=== PATIENT | female | born 1950 | race Caucasian/White ===

== ENCOUNTER → 2018-08-26 | Outpatient (CLI) | payer OTHER ==
[~2018-08-26] MED LIST: ALBU90OI INH; AMIT50 PO; FURO20 PO; HYDACE5 PO; INSLI75/25 SC; INSULIN; LOSARTAN POTAS100 MG PO; METCAR500 PO; METPHE10 PO; OXYC5 PO; RAMI2.5 PO; SERT100 PO
[2018-08-27 20:25] LABS: Adenovirus F 40/41 Not Detected (NOT DETECT); Campylobacter Sp Not Detected (NOT DETECT); Cryptosporidium Not Detected (NOT DETECT); Cyclospora Cayetanensis Not Detected (NOT DETECT); E. Coli O157 Not Detected (NOT DETECT); Entamoeba Histolytica Not Detected (NOT DETECT); Enteroaggregative E. coli-EAEC Not Detected (NOT DETECT); Enteropathogenic E. coli-EPEC Not Detected (NOT DETECT); Enterotoxigenic E. coli-ETEC Not Detected (NOT DETECT); Giardia Lamblia Not Detected (NOT DETECT); Plesiomonas Shigelloides Not Detected (NOT DETECT); Salmonella Sp Not Detected (NOT DETECT); Shiga Toxin-prod E. coli-STEC Not Detected (NOT DETECT); Shigella/Enteroin E. coli-EIEC Not Detected (NOT DETECT); Vibrio Cholerae Not Detected (NOT DETECT); Vibrio Sp Not Detected (NOT DETECT); Yersinia Enterocolitica Not Detected (NOT DETECT)
[2018-08-27 20:26] LABS: Astrovirus Not Detected (NOT DETECT); Norovirus GI/GII Not Detected (NOT DETECT); Rotavirus A Not Detected (NOT DETECT); Sapovirus Not Detected (NOT DETECT)
== END | disposition home or self-care (01) ==
LOC: LAB EV 20:00
PROVIDERS: Physician Assistant Medical
DX: R19.7 Diarrhea, unspecified (principal); R11.2 Nausea with vomiting, unspecified
CPT/HCPCS: 87507

== ENCOUNTER 2018-10-15 13:22 | Day surgery (SDC) | payer OTHER ==
[~2018-10-15] VITALS: Ht 162.6 cm; Wt 104.7 kg
[~2018-10-15 13:22] MED LIST changes: +AMLO5 PO; +FURO40 PO; +Humalog Mi100 UNIT/5 SC; +K-Dur20 MEQ PO; +OMEPRAZOLE MAGN20 MG PO; +TIZANIDINE HCL4 MG PO
[2018-10-15] MEDS ORDERED: INSULANPEN (14:35)
[2018-10-15] MEDS ORDERED: TRULICITY0.75 MG/0. SQ (14:35)
--- NOTE | 2018-10-15 15:06 | NUR ---
10/15/18 1506 Elham Varghese 1CC OF PF 1% LIDOCAINE INJ BY MB IN OPERATIVE EYE AT BEGINNING OF THE CASE
== END 2018-10-15 15:30 | disposition home or self-care (01) ==
LOC: ORSCSDS 13:22
PROVIDERS: Ophthalmology
PROC: 08RJ3JZ Replacement of Right Lens with Synthetic Substitute, Percutaneous Approach (ICD-10-PCS; principal; 2018-10-15 15:30)
DX: H25.11 Age-related nuclear cataract, right eye (principal); I10 Essential (primary) hypertension; E11.9 Type 2 diabetes mellitus without complications; E66.01 Morbid (severe) obesity due to excess calories; Z68.39 Body mass index [BMI] 39.0-39.9, adult; Z79.4 Long term (current) use of insulin; F17.210 Nicotine dependence, cigarettes, uncomplicated; Z79.899 Other long term (current) drug therapy
CPT/HCPCS: 82947; J2250; J3010; J7120; V2632

== ENCOUNTER 2018-12-03 10:24 | Day surgery (SDC) | payer OTHER, SELFPAY ==
[~2018-12-03] VITALS: Ht 162.6 cm; Wt 103.2 kg
[~2018-12-03 10:24] MED LIST changes: +Humalog Mi100 UNIT/5; +INSULANPEN; +Prilosec Otc20 MG PO; +TRULICITY0.75 MG/0. SQ; +[UNRECOGNIZED DRUG - CODE]
== END 2018-12-03 14:33 | disposition home or self-care (01) ==
LOC: ORSCSDS 10:24
PROVIDERS: Ophthalmology
PROC: 08RK3JZ Replacement of Left Lens with Synthetic Substitute, Percutaneous Approach (ICD-10-PCS; principal; 2018-12-03 13:30)
DX: H25.12 Age-related nuclear cataract, left eye (principal); H21.81 Floppy iris syndrome; I10 Essential (primary) hypertension; E11.9 Type 2 diabetes mellitus without complications; F17.210 Nicotine dependence, cigarettes, uncomplicated; E66.01 Morbid (severe) obesity due to excess calories; Z68.42 Body mass index [BMI] 45.0-49.9, adult; Z79.4 Long term (current) use of insulin; Z79.899 Other long term (current) drug therapy
CPT/HCPCS: 82947; J2001; J2250; J3010; J7120; V2632

== ENCOUNTER → 2019-07-06 | Outpatient (CLI) | payer OTHER ==
[2019-07-07 06:21] LABS: Candida species (DNA Probe) Negative (NEGATIVE); G. vaginalis (DNA Probe) Negative (NEGATIVE); T. vaginalis (DNA Probe) Negative (NEGATIVE)
== END | disposition home or self-care (01) ==
LOC: LAB SHORT 08:40 → LAB EV 08:40
PROVIDERS: Physician Assistant Medical
DX: B37.3 Candidiasis of vulva and vagina (principal)
CPT/HCPCS: 87480; 87510; 87660

== ENCOUNTER → 2022-01-30 | Outpatient (CLI) | payer OTHER ==
[~2022-01-30] MED LIST changes: +ALBUTEROL1.25 MG/3 NEB; +ASPI81CH PO; +ATOR10 PO; +CELEBREX200 MG PO; +Chantix1 MG PO; +ESCI20 PO; +LANTUS SOL100 UNIT/1 SC; +NOVOLOG FL100 UNIT/2 SC; +SITA100T2 PO; +SYMBICORT 16010.2 GM INH; +TIZA4 PO; +TRULICITY4.5 MG/0.5 SC
== END | disposition home or self-care (01) ==
LOC: LAB SHORT 15:59 → LAB 15:59
DX: Z48.02 Encounter for removal of sutures (principal); L08.9 Local infection of the skin and subcutaneous tissue, unspecified
CPT/HCPCS: 87070; 87077; 87147; 87186; 87205

== ENCOUNTER 2024-02-18 15:56 | Emergency (ER) | payer OTHER ==
[~2024-02-18] VITALS: Ht 162.6 cm; Wt 113.4 kg
[~2024-02-18 15:56] MED LIST changes: +AMITRIPTYLINE100 M2 PO; +ATOR40TA PO; +BUPR150ER PO; +INSULIN LI100 UNIT/8 SC; +Isosorbide Mono30 MG PO; +JARDIANCE10 MG PO; +K-Dur10 MEQ PO; -LANTUS SOL100 UNIT/1 SC; +METO50ER PO; +NYSTATIN15 GM TOP; +OMEP20ER PO; -Prilosec Otc20 MG PO; +TOUJEO MAX300 UNIT/2 SC; +VITAMIN D32000 UNI1 PO
[2024-02-18 16:35] LABS: BASOPHILS ABSOLUTE AUTO 0.06 K/mm3 (0.00-0.23); BASOPHILS PERCENT AUTO 1 % (0-2); EOSINOPHILS ABSOLUTE AUTO 0.25 K/mm3 (0.00-0.68); EOSINOPHILS PERCENT AUTO 3 % (0-6); Hematocrit 36.7 % (33.0-51.0); IMMATURE GRAN ABSOLUTE AUTO 0.05 K/mm3 (0.00-0.10); IMMATURE GRAN PERCENT AUTO 1 % (0-1); LYMPHOCYTES ABSOLUTE AUTO 1.66 K/mm3 (0.84-5.20); LYMPHOCYTES PERCENT AUTO 18 % (21-46); MONOCYTES ABSOLUTE AUTO 0.61 K/mm3 (0.16-1.47); MONOCYTES PERCENT AUTO 7 % (4-13); Mean Corpuscular HGB 28.4 pg (26.0-34.0); Mean Corpuscular HGB Conc 32.7 g/dL (31.5-36.5); Mean Corpuscular Volume 87 fL (80-100); Mean Platelet Volume 9.7 fL (9.1-12.4); NEUTROPHILS ABSOLUTE AUTO 6.75 K/mm3 (1.96-9.15); NEUTROPHILS PERCENT AUTO 72 % (41-73); Platelet Count 276 K/mm3 (150-400); RDW Standard Deviation 44.1 fL (35.1-46.3); Red Blood Cell Count 4.23 M/mm3 (3.80-5.20); White Blood Cell Count 9.38 K/mm3 (4.00-11.30)
[2024-02-18 16:56] LABS: Albumin, Blood 3.2 g/dL (3.4-5.0); Albumin/Globulin Ratio 0.7 (0.8-1.8); Bilirubin, Total 0.4 mg/dL (0.1-1.0); Bun/Creatinine Ratio 19.8 (12.0-20.0); Calcium, Blood 9.1 mg/dL (8.5-10.1); Creatinine, Blood 0.81 mg/dL (0.40-1.00); Globulin, Blood 4.4 g/dL (2.2-4.0); Potassium, Blood 4.6 mmol/L (3.5-5.5); Total Protein, Blood 7.6 g/dL (6.4-8.2)
[2024-02-18 17:30] VITALS: BP 187/66
[2024-02-18] MEDS ORDERED: MethylPREDNISolone Sod Succ 125 MG Vial IV ONE (18:00)
[2024-02-18] MEDS ORDERED: Albuterol 2.5 MG/3 ML VIAL INH SCH (18:00)
[2024-02-18] MEDS ORDERED: Prednisone20 MG PO (19:59)
== END 2024-02-18 20:15 | disposition home or self-care (01) ==
LOC: ER 15:56
PROVIDERS: Physician Assistant
DX: J44.9 Chronic obstructive pulmonary disease, unspecified (principal); E11.9 Type 2 diabetes mellitus without complications; I11.0 Hypertensive heart disease with heart failure; I50.9 Heart failure, unspecified; F17.210 Nicotine dependence, cigarettes, uncomplicated; Z79.4 Long term (current) use of insulin; Z79.899 Other long term (current) drug therapy; Z79.51 Long term (current) use of inhaled steroids; Z79.82 Long term (current) use of aspirin; Z88.5 Allergy status to narcotic agent
CPT/HCPCS: 71046; 80053; 83880; 84484; 85025; 93005; 93010; 94644; 94664; 96374; 99285-25; J2919

== ENCOUNTER 2024-03-14 18:12 | Emergency (ER) | payer OTHER ==
[~2024-03-14] VITALS: Ht 162.6 cm; Wt 113.4 kg
[~2024-03-14 18:12] MED LIST changes: +Prednisone20 MG PO
[2024-03-14] MEDS ORDERED: HYDROcodone 5-APAP 325 TAB PO ONE (20:20)
[2024-03-14] MEDS ORDERED: Ketorolac Tromethamine 30mg Vial IM ONE (20:20)
[2024-03-15 10:50] VITALS: BP 159/62
== END 2024-03-15 10:50 | disposition home or self-care (01) ==
LOC: ER 18:12
DX: K59.00 Constipation, unspecified (principal); R33.9 Retention of urine, unspecified; M54.30 Sciatica, unspecified side; I11.0 Hypertensive heart disease with heart failure; I50.9 Heart failure, unspecified; E11.9 Type 2 diabetes mellitus without complications; F17.210 Nicotine dependence, cigarettes, uncomplicated; Z88.5 Allergy status to narcotic agent; Z79.52 Long term (current) use of systemic steroids; Z79.899 Other long term (current) drug therapy; Z79.4 Long term (current) use of insulin; Z79.82 Long term (current) use of aspirin
CPT/HCPCS: 96372; 99284-25; A9270; J1885

== ENCOUNTER → 2024-04-01 | Outpatient (CLI) | payer OTHER ==
[2024-04-01 19:48] LABS: Appearance, Urine Clear (Clear); Bilirubin, Urine Neg (Neg); Blood, Urine 1+ (Neg); Glucose Qualitative, Urine 4+ (Neg); Ketones, Urine Neg (Neg); Leukocyte Esterase, Urine 2+ (Neg); Nitrite, Urine Pos (Neg); Protein, Urine 1+ (Neg); Urobilinogen, Urine NORM (Normal); pH, Urine 6.5 (5.0-8.0)
[2024-04-01 20:03] LABS: Color, Urine Pale Yellow (P-Yellow)
[2024-04-01 20:04] LABS: Bacteria Many /hpf; Squamous Epithelial Cells Rare /hpf (Few)
== END ==
LOC: LAB 18:28 → LAB SHORT 18:28
PROVIDERS: Nurse Practitioner Family
DX: R82.90 Unspecified abnormal findings in urine (principal)
CPT/HCPCS: 81001; 87077; 87086; 87186

== ENCOUNTER → 2024-10-12 | Outpatient (CLI) | payer OTHER ==
[2024-10-12 18:30] LABS: Source, Urine Clean Catch
[2024-10-12 19:48] LABS: Appearance, Urine Clear (Clear); Bilirubin, Urine Neg (Neg); Blood, Urine 1+ (Neg); Color, Urine Yellow (P-Yellow); Glucose Qualitative, Urine 1+ (Neg); Ketones, Urine Neg (Neg); Leukocyte Esterase, Urine Neg (Neg); Nitrite, Urine Neg (Neg); Protein, Urine 2+ (Neg); Urobilinogen, Urine NORM (Normal)
[2024-10-12 20:11] LABS: Bacteria Few /hpf; Squamous Epithelial Cells Few /hpf (Few)
[2024-10-12 20:31] LABS: Microalb/Creat Ratio UR, Rand 337.5 mg/g (0.000-30.000)
== END ==
LOC: LAB SHORT 18:28 → LAB 18:28
PROVIDERS: Nurse Practitioner Family
DX: R10.9 Unspecified abdominal pain (principal); E11.65 Type 2 diabetes mellitus with hyperglycemia; Z79.4 Long term (current) use of insulin
CPT/HCPCS: 81001; 82043; 82570